=== PATIENT | female | born 1935 | race Caucasian/White ===

== ENCOUNTER → 2020-04-03 06:51 | Outpatient (CLI) | payer MEDICARE, SELFPAY ==
[2020-04-03 20:13] LABS: SARS-CoV-2 RNA PCR Positive
== END ==
PROVIDERS: PCP Emergency Medicine; Visit Provider Emergency Medicine
DX: U07.1 COVID-19 (principal)
CPT/HCPCS: C9803; U0003; U0005

== ENCOUNTER 2020-04-29 14:02 | Outpatient (CLI) | payer MEDICARE, SELFPAY ==
[2020-04-29 15:01] LABS: Alanine Aminotransferase 21 U/L (4-35); Albumin Level 4.4 g/dL (3.5-5.1); Alkaline Phosphatase 51 U/L (38-126); Anion Gap 8 mmol/L (8-16); Aspartate Amino Transferase 29 U/L (14-36); Bilirubin,Total 0.3 mg/dL (0.2-1.3); Blood Urea Nitrogen 18 mg/dL (7-17); Calcium 9.8 mg/dL (8.4-10.2); Carbon Dioxide 30 mmol/L (22-30); Chloride 100 mmol/L (98-107); Cholesterol 176 mg/dL (0-200); Estimated Glomerular Filt Rate 47; Glucose 104 mg/dL (65-105); HDL Direct 51 mg/dL; Potassium 3.8 mmol/L (3.4-5.0); Sodium 138 mmol/L (137-145); Triglycerides 227 mg/dL (<150)
[2020-04-29 15:13] LABS: LDL Cholesterol Direct 84 mg/dL
[2020-05-02 16:06] LABS: Vitamin D 1,25 (OH)2 Total 74 pg/mL (18-72); Vitamin D2 1,25 (OH)2 <8 pg/mL; Vitamin D3 1,25 (OH)2 74 pg/mL
== END 2020-04-29 14:03 | disposition home or self-care (01) ==
LOC: ANHLAB 14:07
PROVIDERS: PCP Emergency Medicine; Visit Provider Emergency Medicine
DX: E78.2 Mixed hyperlipidemia (principal); I10 Essential (primary) hypertension; E03.9 Hypothyroidism, unspecified; E55.9 Vitamin D deficiency, unspecified
CPT/HCPCS: 36415; 80053; 80061; 82652; 84443

== ENCOUNTER 2020-12-26 10:48 | Outpatient (CLI) | payer MEDICARE, SELFPAY ==
[2020-12-26 11:44] LABS: Alanine Aminotransferase 19 U/L (4-35); Albumin Level 4.7 g/dL (3.5-5.1); Alkaline Phosphatase 52 U/L (38-126); Anion Gap 10 mmol/L (8-16); Aspartate Amino Transferase 27 U/L (14-36); Bilirubin,Total 0.6 mg/dL (0.2-1.3); Blood Urea Nitrogen 26 mg/dL (7-17); Calcium 10.1 mg/dL (8.4-10.2); Carbon Dioxide 28 mmol/L (22-30); Chloride 101 mmol/L (98-107); Cholesterol 176 mg/dL (0-200); Estimated Glomerular Filt Rate 47; Glucose 110 mg/dL (65-110); HDL Direct 54 mg/dL; Potassium 4.1 mmol/L (3.4-5.0); Sodium 139 mmol/L (137-145); Triglycerides 142 mg/dL (<150)
[2020-12-26 11:55] LABS: LDL Cholesterol Direct 82 mg/dL
== END 2020-12-26 10:49 | disposition home or self-care (01) ==
LOC: ANHLAB 10:51
PROVIDERS: PCP Emergency Medicine; Visit Provider Emergency Medicine
DX: E03.9 Hypothyroidism, unspecified (principal); E78.2 Mixed hyperlipidemia; I10 Essential (primary) hypertension
CPT/HCPCS: 36415; 80053; 80061; 84443

== ENCOUNTER 2021-01-02 09:13 | Outpatient (CLI) | payer MEDICARE, SELFPAY ==
--- NOTE | ~2021-01-02 | MM_ITS ---
EXAMINATION: MM screening [facility] BI w von HISTORY: Screening mammogram TECHNIQUE: Craniocaudal and mediolateral oblique 3-D tomosynthesis images were obtained and synthetic 2-D images were generated. CAD analysis was submitted and interpreted. COMPARISON: 11/23/2017, 12/03/2015 BREAST PARENCHYMAL COMPOSITION: There are scattered areas of fibroglandular density. FINDINGS: Scattered benign-appearing calcifications are present. There is no evidence of suspicious m ass, calcification, or architectural distortion to suggest malignancy in either breast. There has bee n no suspicious interval change. IMPRESSION: 1. No mammographic evidence of malignancy. 2. Recommend routine screening mammography in one year. BI-RADS Category 2: Benign finding(s). Reviewed, dictated and finalized at location A. OP ANALYST
== END 2021-01-02 09:14 | disposition home or self-care (01) ==
LOC: ANHIMG 09:14
PROVIDERS: PCP Emergency Medicine; Visit Provider Emergency Medicine
DX: Z12.31 Encounter for screening mammogram for malignant neoplasm of breast (principal)
CPT/HCPCS: 77063; 77067

== ENCOUNTER 2021-06-26 08:09 | Outpatient (CLI) | payer MEDICARE, SELFPAY ==
[2021-06-26 09:37] LABS: Alanine Aminotransferase 17 U/L (6-35); Albumin Level 4.6 g/dL (3.5-5.1); Alkaline Phosphatase 50 U/L (38-126); Anion Gap 7 mmol/L (8-16); Aspartate Amino Transferase 25 U/L (14-36); Bilirubin,Total 0.5 mg/dL (0.2-1.3); Blood Urea Nitrogen 23 mg/dL (7-17); Calcium 9.5 mg/dL (8.4-10.2); Carbon Dioxide 29 mmol/L (22-30); Chloride 101 mmol/L (98-107); Cholesterol 156 mg/dL (0-200); Estimated Glomerular Filt Rate 47; Glucose 103 mg/dL (65-110); HDL Direct 50 mg/dL; Potassium 4.1 mmol/L (3.4-5.0); Sodium 137 mmol/L (137-145); Triglycerides 127 mg/dL (<150)
[2021-06-26 09:48] LABS: LDL Cholesterol Direct 64 mg/dL
== END 2021-06-26 08:10 | disposition home or self-care (01) ==
LOC: ANHLAB 08:13
PROVIDERS: PCP Emergency Medicine; Visit Provider Emergency Medicine
DX: E03.9 Hypothyroidism, unspecified (principal); E78.2 Mixed hyperlipidemia
CPT/HCPCS: 36415; 80053; 80061

== ENCOUNTER 2021-09-16 14:33 | Outpatient (CLI) | payer MEDICARE, SELFPAY ==
--- NOTE | ~2021-09-16 | DEXA_ITS ---
Bone Density Report Name: TANA MCDOWELL Age: 86 Sex: Female Ethnicity: White Date of : 1935 Indication: postmenopausal; screening for osteoporosis; height loss; Referring Provider: CONRAD GAMBLE Study: Bone densitometry was performed. Exam Date: September 16, 2021 Accession number: [id number] Bone Density: Region BMD T-score Z-score Classification AP Spine(L1-L4) 1.102 0.5 3.4 Normal Femoral Neck (Left) 0.737 -1.0 1.5 Normal Total Hip (Left) 0.854 -0.7 1.6 Normal Femoral Neck (Right) 0.695 -1.4 1.1 Osteopenia Total Hip (Right) 0.870 -0.6 1.7 Normal Total Hip Mean 0.862 -0.7 1.7 Normal World Health Organization criteria for BMD impression classify patients as: Normal (T-score at or above -1.0), Osteopenia (T-score between -1.0 and -2.5), or Osteoporosis (T-score at or below -2.5). 10-year Fracture Risk(1): Major Osteoporotic Fracture 14% Hip Fracture 3.5% Reported Risk Factors: [place] (), Neck BMD=0.695, BMI=25.4 (1) FRAX(R) Version 3.08. Fracture probability calculated for an untreated patient. Fracture probability may be lower if the patient has received treatment. Clinical Information Provided by Patient: Has used the following medications: Vitamin D, Calcium Patient maximum height was 64 Menopause Age: 53 Onset of menses at age 13 Number of children 0 Impression: The patient has low bone mass, based on the Right Femoral Neck T-score. The patient has an estimated ten-year risk of hip fracture of 3.5% and an estimated ten-year risk of major fracture of 14%, based on the WHO FRAX algorithm. Discussion: BONE DENSITY IS LOW AT ONE OR MORE SKELETAL SITES. THE PATIENT'S BMD AND CLINICAL RISK FACTORS CONTRIBUTE TO THIS PATIENT'S INCREASED RISK OF FRACTURE. This patient's lowest T-score is low at one or more skeletal sites. It meets the World Health Organization's (WHO) criteria for ?low bone mass? (T-score between -1.0 and -2.5). The patient's 10-year risk of hip fracture as calculated by FRAX exceeds the threshold where pharmacological therapy is recommended by the National Osteoporosis Foundation (NOF). However, all treatment decisions require clinical judgment and consideration of individual patient factors, including patient preferences, comorbidities, previous drug use, risk factors not captured in the FRAX model (e.g., frailty, falls, vitamin D deficiency, increased bone turnover, interval significant decline in bone density) and possible under or overestimation of fracture risk by FRAX. The patient should follow a healthful lifestyle (good nutrition with adequate calcium and vitamin D, and appropriate weight-bearing exercise). Follow-Up: Consider a repeat BMD and Vertebral Fracture Assessment (VFA) exam in 2 years or sooner if medically necessar
== END 2021-09-16 14:34 | disposition home or self-care (01) ==
PROVIDERS: PCP Emergency Medicine; Visit Provider Emergency Medicine
DX: Z78.0 Asymptomatic menopausal state (principal); M85.851 Other specified disorders of bone density and structure, right thigh
CPT/HCPCS: 77080

== ENCOUNTER 2021-12-23 09:39 | Outpatient (CLI) | payer MEDICARE, SELFPAY ==
[2021-12-23 10:42] LABS: Alanine Aminotransferase 22 U/L (6-35); Albumin Level 4.8 g/dL (3.5-5.1); Alkaline Phosphatase 51 U/L (38-126); Anion Gap 13 mmol/L (8-16); Aspartate Amino Transferase 24 U/L (14-36); Bilirubin,Total 0.6 mg/dL (0.2-1.3); Blood Urea Nitrogen 19 mg/dL (7-17); Calcium 9.5 mg/dL (8.4-10.2); Carbon Dioxide 27 mmol/L (22-30); Chloride 100 mmol/L (98-107); Cholesterol 176 mg/dL (0-200); Estimated Glomerular Filt Rate 53; Glucose 102 mg/dL (65-110); HDL Direct 50 mg/dL; Sodium 140 mmol/L (137-145); Triglycerides 141 mg/dL (<150)
[2021-12-23 10:52] LABS: LDL Cholesterol Direct 82 mg/dL
== END 2021-12-23 09:40 | disposition home or self-care (01) ==
LOC: ANHLAB 09:49
PROVIDERS: PCP Emergency Medicine; Visit Provider Emergency Medicine
DX: E03.9 Hypothyroidism, unspecified (principal); I10 Essential (primary) hypertension
CPT/HCPCS: 36415; 80053; 80061; 84443

== ENCOUNTER 2022-06-03 10:38 | Outpatient (CLI) | payer MEDICARE, SELFPAY ==
[2022-06-03 11:20] LABS: Alanine Aminotransferase 23 U/L (6-35); Albumin Level 4.8 g/dL (3.5-5.1); Alkaline Phosphatase 53 U/L (38-126); Anion Gap 7 mmol/L (8-16); Aspartate Amino Transferase 26 U/L (14-36); Bilirubin,Total 0.6 mg/dL (0.2-1.3); Blood Urea Nitrogen 21 mg/dL (7-17); Calcium 9.5 mg/dL (8.4-10.2); Carbon Dioxide 29 mmol/L (22-30); Chloride 102 mmol/L (98-107); Cholesterol 176 mg/dL (0-200); Estimated Glomerular Filt Rate 53; Glucose 101 mg/dL (65-110); HDL Direct 55 mg/dL; Potassium 4.4 mmol/L (3.4-5.0); Sodium 138 mmol/L (137-145); Triglycerides 150 mg/dL (<150)
[2022-06-03 11:31] LABS: LDL Cholesterol Direct 81 mg/dL
[2022-06-03 12:28] LABS: Folic Acid > 20.0 ng/mL (2.76->20)
[2022-06-07 23:42] LABS: Vitamin D 1,25 (OH)2 Total 67 pg/mL (18-72); Vitamin D2 1,25 (OH)2 <8 pg/mL; Vitamin D3 1,25 (OH)2 67 pg/mL
== END 2022-06-03 10:39 | disposition home or self-care (01) ==
LOC: ANHLAB 10:40
PROVIDERS: PCP Emergency Medicine; Visit Provider Emergency Medicine
DX: E55.9 Vitamin D deficiency, unspecified (principal); I10 Essential (primary) hypertension
CPT/HCPCS: 36415; 80053; 80061; 82607; 82652; 82746; 84443

== ENCOUNTER 2023-01-08 11:01 | Outpatient (CLI) | payer MEDICARE, SELFPAY ==
[2023-01-08 11:55] LABS: Alanine Aminotransferase 27 U/L (6-35); Albumin Level 4.9 g/dL (3.5-5.1); Alkaline Phosphatase 70 U/L (38-126); Anion Gap 12 mmol/L (8-16); Aspartate Amino Transferase 27 U/L (14-36); Bilirubin,Total 0.6 mg/dL (0.2-1.3); Blood Urea Nitrogen 28 mg/dL (7-17); Carbon Dioxide 27 mmol/L (22-30); Chloride 99 mmol/L (98-107); Cholesterol 189 mg/dL (0-200); Estimated Glomerular Filt Rate 43; Glucose 109 mg/dL (65-110); HDL Direct 53 mg/dL; Potassium 4.1 mmol/L (3.4-5.0); Sodium 138 mmol/L (137-145); Triglycerides 161 mg/dL (<150)
[2023-01-08 12:06] LABS: LDL Cholesterol Direct 84 mg/dL
[2023-01-11 10:35] LABS: Vitamin D 1,25 (OH)2 Total 58 pg/mL (18-72); Vitamin D2 1,25 (OH)2 <8 pg/mL; Vitamin D3 1,25 (OH)2 58 pg/mL
== END 2023-01-08 11:02 | disposition home or self-care (01) ==
PROVIDERS: PCP Emergency Medicine; Visit Provider Emergency Medicine
DX: E55.9 Vitamin D deficiency, unspecified (principal); I10 Essential (primary) hypertension
CPT/HCPCS: 36415; 80053; 80061; 82652; 84443

== ENCOUNTER 2023-02-20 18:37 | Observation (INO) | payer MEDICARE, SELFPAY ==
[2023-02-20] VITALS (10 sets, daily range): BP systolic 133–159; BP diastolic 56–67; PULSE 77–99; RESP 14–25; TEMP 36.4–36.8; O2SAT 94–100; BMI 20.2
--- NOTE | ~2023-02-20 | XR_ITS ---
EXAMINATION: XR foot RT min 3V DATE: 02/20/2023 21:03 INDICATION: Right foot pain and swelling, initial encounter TECHNIQUE: Dorsoplantar, lateral, and oblique views of the right foot were obtained. COMPARISON: None. FINDINGS: There is an acute, traumatic, closed, oblique fracture involving the mid and distal neck of the fifth metatarsal. No additional acute fracture is identified. 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 Hallux valgus is noted. There are posterior and plantar calcaneal enthesophytes. IMPRESSION: 1. Acute oblique fracture of the fifth metatarsal neck. Reviewed, dictated and finalized at location F. RVISOR FRAMING MILL
--- NOTE | ~2023-02-20 | US_ITS ---
EXAMINATION: US renal BI DATE: 02/21/2023 10:22 INDICATION: Chronic kidney disease. TECHNIQUE: Multiple ultrasound grayscale images of the kidneys were obtained. COMPARISON: Abdomen MRI 10/01/2013 FINDINGS: The right kidney measures 9.2 x 4.7 x 4.9 cm. The left kidney measures 9.1 x 4.9 x 4.4 cm. The kidney s demonstrate normal parenchymal echogenicity. There is no hydronephrosis. The bladder is normal. IMPRESSION: 1. Normal kidneys. No hydronephrosis. Reviewed, dictated and finalized at location A. S OPERATOR APPRENTICE
--- NOTE | ~2023-02-20 | MR_ITS ---
EXAMINATION: MR brain/brain stem wo con DATE: 02/21/2023 08:10 INDICATION: Stroke. Head injury. TECHNIQUE: Magnetic resonance imaging (MRI) of the brain and brainstem was performed without intraven ous contrast. COMPARISON: Head CT 02/20/2023 FINDINGS: There are scattered areas of low attenuation in the cerebral white matter and jerrica, which i s within normal limits for the patient's age. There is an old infarct in left parietal lobe. There i s an old infarct in right cerebellum. There is no intracranial hemorrhage, acute infarction, or abnor mal intracranial mass lesion. The ventricles are normal in size. The paranasal sinuses are clear. The orbits are normal. The mastoid air cells are normal. IMPRESSION: 1. Old infarcts in the left parietal lobe and right cerebellum. Reviewed, dictated and finalized at location A. NICAL BUYER
--- NOTE | ~2023-02-20 | CT_ITS ---
EXAMINATION: CTA brain carotid DATE: 02/20/2023 20:48 INDICATION: Head injury TECHNIQUE: Computed tomographic angiography (CTA) of the head was performed without and with 100 mL O mnipaque-350 intravenous contrast. CTA of the neck was performed with intravenous contrast. The dose- length product was 976.58 mGy-cm. Maximum intensity projection and volume rendered 3D-reconstructions were created by the technologist on a separate workstation. Automated exposure control and iterative reconstruction technique were employed. COMPARISON: None. FINDINGS: HEAD CTA: There is no acute intraparenchymal hemorrhage. No evidence of mass lesion. No evidence of a cute infarction. There is a small area of prior infarction in the left frontoparietal region. There a re small lacunar infarcts of the right basal ganglia. There is mild periventricular and subcortical h ypodensity probably related to small vessel ischemic disease. There is mild prominence of the sulci a nd ventricles related to cerebral atrophy. Intracranial calcified cerebral atherosclerosis is noted. There are no extra-axial collections. There is no mass effect or midline shift. The orbits are unrema rkable. There is right parietal scalp soft tissue swelling.. The visualized sinuses and mastoid air c ells are well aerated. There is no significant stenosis of the basilar artery or posterior cerebral arteries. There is no si gnificant stenosis of the intracranial internal carotid arteries or the anterior or middle cerebral a rteries. The anterior communicating artery and posterior communicating arteries are normal. There is no aneurysm. NECK CTA: The thyroid gland is unremarkable. The submandibular and parotid glands are symmetric. Ther e is no lymphadenopathy. There are no masses identified. The airway is unremarkable. The superior med iastinum is unremarkable. There is moderate cervical spondylosis. There is 0% stenosis of the proximal right internal carotid artery relative to normal distal artery l umen diameter (NASCET criteria). There is 0% stenosis of the proximal left internal carotid artery re lative to normal distal artery lumen diameter. IMPRESSION: 1. Areas of prior infarction without acute intracranial abnormality. Normal head CTA. 2. 0% stenosis of the proximal right internal carotid artery relative to normal distal artery lumen d iameter (NASCET criteria). 3. 0% stenosis of the proximal left internal carotid artery relative to normal distal artery lumen di ameter. Reviewed, dictated and finalized at location F. STAPLER IMPRESSION: 1. Areas of prior infarction without acute intracranial abnormality. Normal hea d CTA. 2. 0% stenosis of the proximal right internal carotid artery relative to normal distal artery lumen diameter (NASCET criteria). 3. 0% stenosis of the proximal left internal carotid artery relative to normal distal artery lumen diameter.
--- NOTE | ~2023-02-20 | XR_ITS ---
EXAMINATION: XR chest 1V portable INDICATION: Weakness TECHNIQUE: Portable AP chest at 2058 hours COMPARISON: 08/08/2017 FINDINGS: There is chronic atelectasis or scarring of the left lung base. The lungs are free of acute opacities. No pleural effusion or pneumothorax. The cardiac mediastinal silhouette is normal. IMPRESSION: 1. No acute cardiopulmonary abnormality. Reviewed, dictated and finalized at location F. N FREIGHT AGENT
--- NOTE | ~2023-02-20 | CT_ITS ---
EXAMINATION: CT cervical spine wo con DATE: 02/20/2023 20:48 INDICATION: Head injury TECHNIQUE: Computed tomography (CT) of the cervical spine was performed without intravenous contrast. The dose-length product (DLP) was 186.61 mGy-cm. Automated exposure control and iterative reconstruc tion technique were employed. COMPARISON: None FINDINGS: There are 2 mm of anterolisthesis of C4 on C5 and C7 on T1. The vertebral body heights are maintained. There is moderate loss of intervertebral disc space height at C5-6, C6-7, and C7-T1. The odontoid process is intact. There is multilevel severe facet and uncovertebral joint osteoarthritis. IMPRESSION: 1. Moderate cervical spondylosis without acute findings. Reviewed, dictated and finalized at location F. LEATER
--- NOTE | ~2023-02-20 | CT_ITS ---
EXAMINATION: CT brain wo con INDICATION: Head injury COMPARISON: None TECHNIQUE: Standard unenhanced head CT. The dose-length product (DLP) was 605.33 mGy-cm. The mA was a djusted according to patient size. Iterative reconstruction technique was employed. FINDINGS: No acute intraparenchymal hemorrhage. No evidence of mass lesion. No evidence of acute infa rction. There is a small area of prior infarction in the left frontoparietal region. There are small lacunar infarcts of the right basal ganglia. There is mild periventricular and subcortical hypodensit y probably related to small vessel ischemic disease. There is mild prominence of the sulci and ventri cles related to cerebral atrophy. Intracranial calcified cerebral atherosclerosis is noted. No extra- axial collections. No mass effect or midline shift. The orbits are unremarkable. There is right parie wm scalp soft tissue swelling. The visualized sinuses and mastoid air cells are well aerated. IMPRESSION: 1. Areas of prior infarction without acute intracranial abnormality. 2. Age related findings. Reviewed, dictated and finalized at location F. RIAL ASSEMBLER
--- NOTE | 2023-02-20 19:41 | ECG_ITS ---
Measurements Intervals [place] Rate: 90 P: 46 UT: 162 QRS: -62 QRSD: 152 T: 8 QT: 396 QTc: 485 Interpretive Statements SINUS RHYTHM RIGHT BUNDLE BRANCH BLOCK LEFT ANTERIOR FASCICULAR BLOCK BASELINE WANDER- II, III ABNORMAL ECG NO PREVIOUS ECG AVAILABLE FOR COMPARISON Electronically Signed On 02-21-2023 6:48:59 LUMBER YARD WORKER by Vishnu Gonzalez D.O.
[2023-02-20] MEDS: ASPIRIN 81 MG CHEWABLE TABLET 324 MG PO (20:02)
[2023-02-20 20:07] LABS: Basophils Absolute Auto 0.1 K/mm3 (0.0-0.1); Basophils Percent Auto 1.1 % (0.2-1.2); Eosinophils Absolute Auto 0.4 K/mm3 (0-0.3); Eosinophils Percent Auto 3.8 % (0-4.4); Hematocrit 35.9 % (37.0-47.0); Hemoglobin 11.4 g/dL (12.0-15.0); Immature Granulocyte Absolute 0.05 K/mm3 (0.00-0.031); Immature Granulocyte Percent A 0.5 % (0-0.5); Lymphocytes Percent Auto 14.2 % (18.3-44.2); Mean Corpuscular HGB Conc 31.8 g/dl (32-36); Mean Corpuscular Hemoglobin 29.3 pg (26-34); Mean Corpuscular Volume 92.3 fl (80-100); Monocytes Percent Auto 10.3 % (2.6-8.5); Neutrophils Absolute Auto 6.9 K/mm3 (1.3-6.7); Neutrophils Percent Auto 70.1 % (45.5-73.1); Platelet Count Result 472 k/mm3 (150-375); Red Blood Count 3.89 M/mm3 (4.2-5.4); Red Cell Distribution Width 13.4 % (11.5-14.5); White Blood Count 9.9 K/mm3 (4.5-10.0)
--- NOTE | 2023-02-20 20:12 | ED.GENADULT ---
HPI - General Adult General Chief complaint: Fall Stated complaint: fall today-hit head-no thinners Time Seen by Provider: 02/20/23 19:20 History of Present Illness HPI narrative: And is a 57-year-old female who presents emergency department with chief complaint of fall. Patient reports that she tripped and fell and struck her head on a hardwood floor patient denies being on blood thinners denies loss of consciousness. The patient states that around 2:00 p.m. today she noticed that her right leg was heavier than normal and was clumsy the patient states she also had some numbness and tingling around the area of the 5th metatarsal Related Data Home Medications Medication Instructions Recorded Confirmed loratadine 10 mg tablet (Claritin) 10 mg PO DAILY 12/26/20 01/13/23 Glucosamin/Chondroitin/MSM See Rx Instructions .Route .COMPLEX 07/01/21 01/13/23 Good Health Multivitamin See Rx Instructions .Route .COMPLEX 07/01/21 01/13/23 OMEGA 3 See Rx Instructions .Route .COMPLEX 07/01/21 01/13/23 cholecalciferol (vitamin D3) 25 25 mcg PO DAILY 06/09/22 01/13/23 mcg (1,000 unit) capsule coenzyme Q10 30 mg capsule 30 mg PO DAILY 01/12/23 01/13/23 magnesium oxide 400 mg PO DAILY 01/12/23 01/13/23 Allergies Allergy/AdvReac Type Severity Reaction Status Date / Time No Known Allergies Allergy Unknown Verified 02/20/23 18:37 Review of Systems Review of Systems: A 10 system review of systems was completed on the patient and is negative except for what is stated in the HPI. Nursing and ancillary documentation was reviewed. [facility] Past Medical History Medical History Essential (primary) hypertension Family History Family History Sibling Hypertension Family history of arthritis Father Family history of lung cancer Acute myocardial infarction Family history of malignant neoplasm, Onset Age: 91 Mother Family history of congestive heart failure Acute myocardial infarction Family history of cardiovascular disease, Onset Age: 92 Other Family history of allergic disorder Social History Social History Smoking status: Never smoker Second hand tobacco smoke exposure: No Alcohol intake: never Substance use: never Current Housing: Decline to Answer Concerned About Future Housing: Decline to Answer Difficulty Paying Gas/Electric Bills: Decline to Answer Difficulty Paying for Meds: Decline to Answer Currently Unemployed: Decline to Answer Education: Decline to Answer Difficulty w/ Childcare or Family Care: Decline to Answer Exam Narrative: GENERAL: Well-appearing, well-nourished, and in no acute distress. HEAD: Normocephalic, atraumatic. EYES: PERRLA and EOMI. ENT: Nares clear, no rhinorrhea or epistaxis. Mucous membranes moist. NECK: Supple. CHEST: Clear to auscultation. No respiratory distress. HEART: Regular rate and rhythm. No murmur heard. Normal peripheral pulses. ABDOMEN: Soft, nontender, nondistended, normal active bowel sounds. EXTREMITIES: Normal range of motion. No edema. SKIN: Warm, dry, no rash. NEURO: No focal deficits. Alert and oriented x3. PSYCH: Normal mood and affect. Course Vital Signs Vital signs: Vital Signs Temperature 36.8 C 02/20/23 18:41 Pulse Rate 99 02/20/23 18:41 Respiratory Rate 18 02/20/23 18:41 Blood Pressure 159/61 H 02/20/23 18:41 Pulse Oximetry 98 02/20/23 18:41 Oxygen Delivery Room Air 02/20/23 18:41 Temperature 36.8 C 02/20/23 18:41 Pulse Rate 92 02/20/23 19:57 Respiratory Rate 20 02/20/23 19:57 Blood Pressure 135/60 02/20/23 19:57 Pulse Oximetry 100 02/20/23 19:57 Oxygen Delivery Room Air 02/20/23 18:41 Medical Decision Making MDM Narrative Medical decision making narrative: Shakila
[2023-02-20 20:23] LABS: Alanine Aminotransferase 24 U/L (6-35); Alkaline Phosphatase 61 U/L (38-126); Anion Gap 11 mmol/L (8-16); Aspartate Amino Transferase 33 U/L (14-36); Bilirubin,Total 0.4 mg/dL (0.2-1.3); Blood Urea Nitrogen 32 mg/dL (7-17); Calcium 10.1 mg/dL (8.4-10.2); Carbon Dioxide 29 mmol/L (22-30); Chloride 97 mmol/L (98-107); Estimated CRCL calculation 20 ml/min; Estimated Glomerular Filt Rate 33; Glucose 122 mg/dL (65-110); Magnesium 2.3 mg/dL (1.6-2.3); Potassium 3.5 mmol/L (3.4-5.0); Sodium 137 mmol/L (137-145)
--- NOTE | 2023-02-20 20:33 | PC.NURSE ---
Patient taken to CT via stretcher at this time.
[2023-02-20 20:35] LABS: Troponin I < 0.012 ng/mL (0.000-0.034)
[2023-02-20 20:36] LABS: INR 0.9; Partial Thromboplastin Time 26.6 SECONDS (22.3-36.8); Prothrombin Time 12.8 Seconds (11.1-14.7)
[2023-02-20 23:10] LABS: Appearance Urine Clear (Clear); Bacteria Urine None Seen /hpf; Bilirubin Urine Negative (Negative); Color Urine Yellow (Yellow); Glucose Urine UA Negative (Negative); Ketones Urine Negative (Negative); Leukocyte Esterase Ur Negative LEU/UL (Negative); Nitrate Urine Negative (Negative); Non Pathogenic Casts 0-2; Protein Urine Negative (Negative); RBC Urine 0-2 /hpf (0-2); Squamous Epithelial Cell Urine None seen /hpf (Few); Urobilinogen Urine 0.2 mg/dL (<2.0); WBC Urine 0-5 /hpf
[2023-02-20 23:13] LABS: Add Urine Microscopic? YES; Specific Grav Ur 1.049 (1.001-1.035)
[2023-02-21] VITALS (14 sets, daily range): BP systolic 107–129; BP diastolic 49–60; PULSE 64–85; RESP 20; TEMP 35.9–36.3; O2SAT 93–100
--- NOTE | 2023-02-21 | ECHO_ITS ---
Patient Info Name: Nithya Ramos Age: 87 years : 1935 Gender: Female Ht: 64 in Wt: 118 lbs BSA: 1.55 m2 HR: 81 bpm BP: 107 / 56 mmHg Heart Rhythm: Sinus Rhythm Technical Quality: Fair Exam Date: 02/21/2023 1:04 PM Exam Location: Echo Lab Patient Status: Outpatient Admit Date: 02/20/2023 Staff Ordering Physician: Kash Abad MD Nitrocellulose Maker: Diana Beverly RDCS Attending Provider: Radha Sanchez DO Exam Type: CA echo dop bubble study w con Study Info Indications - WEAKNESS Complete two-dimentional, color flow and Doppler transthoracic echocardiogram is performed with agitated saline and with contrast to opacify the left ventricle and to improve the delineation of the left ventricle endocardial borders. Contrast/Agitated Saline Contrast/Ag. Saline: Agitated Saline Amount: 20.00 ml Administered By: Christal Moore RDCS Existing IV Access: Yes IV Access Condition: patent with no signs of infiltration Contrast/Ag. Saline: Definity Amount: 2.00 ml Administered By: Diana Beverly RDCS Existing IV Access: Yes IV Access Condition: patent with no signs of infiltration Summary 1. Technically difficult study with limited views. Definity contrast administered. 2. Left ventricular chamber dimension is normal. 3. Left ventricular systolic function is hyperdynamic, estimated at >70%. 4. There is mildly increased left ventricular wall thickness. 5. The left ventricular diastolic function is grade I diastolic dysfunction. 6. No evidence for [id number] shunt with and without Valsalva with injection of agitated saline. Clinical correlation advised. Left Ventricle Left ventricular chamber dimension is normal. Left ventricular systolic function is hyperdynamic, estimated at >70%. There is mildly increased left ventricular wall thickness. The left ventricular diastolic function is grade I diastolic dysfunction. Technically difficult study with limited views. Definity contrast administered. Right Ventricle Right ventricular chamber dimension is normal. Right ventricular systolic function is normal. Prominent moderator band. Left Atria Left atrial chamber dimension is normal. Right Atria Right atrial chamber dimension is normal. Atrial Septum No evidence for jyxqb-[id number]-kjqa shunt with and without Valsalva with injection of agitated saline. Clinical correlation advised. Aortic Valve The aortic valve is probable trileaflet. There is mild aortic valve sclerosis. There is no aortic valve stenosis. There is no aortic valve regurgitation. Pulmonic Valve The pulmonic valve is not well visualized. Mitral Valve The mitral valve has thickened leaflets. There is trace mitral valve regurgitation. The mitral valve annulus is mildly calcified. Tricuspid Valve The tricuspid valve leaflets are normal. There is trace tricuspid valve regurgitation. No pulmonary hypertension, estimated pulmonary arterial systolic pressure is 23 mmHg. Pericardium/Pleural The pericardium appears normal. There is small pericardial effusion. Inferior Vena Cava Normal inferior vena cava with >50% collapse upon inspiration consistent with normal right atrial pressure, 5 mmHg. Aorta The aortic root size at the sinus of Valsalva is normal. The prox ascending aorta size is normal. There is mild aortic atherosclerosis. Left Ventricular Outflow Tract Name Value
[2023-02-21 02:01] LABS: Troponin I < 0.012 ng/mL (0.000-0.034)
--- NOTE | 2023-02-21 08:58 | PM.IMHP ---
H&P: HPI History of Present Illness Date/Time: 02/21/23 08:58 Chief Complaint: Fall Narrative: 87yo female with hypothyroidism, hyperlipidemia and hypertension here for fall. In the afternoon on the day of admission the patient experienced right foot symptoms that felt 'like a weight'. Symptoms were brief and resolved quickly without intervention. There was no trauma to the right foot. No ankle injury or foot injury. Patient denies any numbness, tingling or weakness in the extremities after this event. After dinner, patient stood to walk. She took about 10 steps when she felt unbalanced falling backwards hitting the back her head. She denies any lightheadedness, chest pain, dizziness or shortness of breath prior to the fall. She had no loss consciousness. She was oriented after the fall. Speech was clear. There has been no fever, chills, vision changes, hearing changes, odynophagia, dysphagia, chest pain, shortness some breath, nausea, vomiting abdominal pain, back pain, dysuria or hematuria. She has lost 15 lb since August unintentionally but has gained about 5 lb back. She has recently moved to [facility]. EMS was called. Unclear what her blood pressure or glucose were at the time. EMS recommended patient be evaluated in the emergency room. Patient was taken by private car to the ED. in the ED, she was hemodynamically stable. White count was normal. Hemoglobin slightly low at 11.4. Platelet count was mildly elevated 472K. BUN was 32 and creatinine was 1.5. Glucose 122. LFTs normal. Urinalysis was clear. Cervical spine CT showed moderate cervical spondylosis without acute findings. There was concern the patient may have had TIA so CTA was ordered. CTA of the head and neck again shows areas of prior infarct without acute intracranial abnormalities. She had 0% stenosis in the bilateral proximal internal carotid arteries. Chest x-ray was clear. Foot x-ray shows acute oblique fracture of the 5th metatarsal neck. She was placed in a soft cast. She was given aspirin. She was admitted for further care. Review of Systems Review of Systems: All systems reviewed & are unremarkable except as noted in HPI and below [facility] Past Medical History Medical History (Updated 02/21/23 @ 09:33 by Kash Abad MD) CVA (cerebral vascular accident) noted by CT scan Feb 2023 Essential (primary) hypertension Hypothyroidism, unspecified Other hyperlipidemia Vitamin D deficiency Surgical History Surgical History Hx of cholecystectomy complicated by needing endoscopy with bile stent placed Family History Family History Sibling Hypertension Family history of arthritis Father Family history of lung cancer Acute myocardial infarction Family history of malignant neoplasm, Onset Age: 91 Mother Family history of congestive heart failure Acute myocardial infarction Family history of cardiovascular disease, Onset Age: 92 Other Family history of allergic disorder Social History Social History (Updated 02/21/23 @ 09:14 by Kash Abad MD) Social History: Lifelong nonsmoker. No alcohol or drug use. Full code. She nominates [place], her daughter, to be the individual who would make medical decisions for her if she is unable. She lives in independent living at [place]. Smoking status: Never smoker Second hand tobacco smoke exposure: No Alcohol intake: never Substance use: never Do You Feel Safe in your Home?: Yes Lack of Transportation: No Lack of Food: Never True Current Housing: I Have Housing Concerned About Future Housing: No Difficulty Paying Gas/Electric Bills: No Difficulty Paying for Meds: No Currently Unemployed: No Education: High School Diploma/GED Difficulty w/ Childcare or Family Care: No Spiritual c
--- NOTE | 2023-02-21 09:26 | PM.CNOR ---
History of Present Illness HPI Consult date: 02/21/23 Chief complaint: Fall, Possible TIA, Fracture of 5th Metatarsal PMFSH Past Medical History Medical History Essential (primary) hypertension Hypothyroidism, unspecified Other hyperlipidemia Vitamin D deficiency Surgical History Surgical History Hx of cholecystectomy complicated by needing endoscopy with bile stent placed Family History Family History Sibling Hypertension Family history of arthritis Father Family history of lung cancer Acute myocardial infarction Family history of malignant neoplasm, Onset Age: 91 Mother Family history of congestive heart failure Acute myocardial infarction Family history of cardiovascular disease, Onset Age: 92 Other Family history of allergic disorder Social History Social History (Updated 02/21/23 @ 09:14 by Kash Abad MD) Social History: Lifelong nonsmoker. No alcohol or drug use. Full code. She nominates [place], her daughter, to be the individual who would make medical decisions for her if she is unable. She lives in independent living at [facility]. Smoking status: Never smoker Second hand tobacco smoke exposure: No Alcohol intake: never Substance use: never Do You Feel Safe in your Home?: Yes Lack of Transportation: No Lack of Food: Never True Current Housing: I Have Housing Concerned About Future Housing: No Difficulty Paying Gas/Electric Bills: No Difficulty Paying for Meds: No Currently Unemployed: No Education: High School Diploma/GED Difficulty w/ Childcare or Family Care: No Spiritual care concerns: No Meds Home Medications and Allergies Home Medications Medication Instructions Recorded Confirmed Type loratadine 10 mg tablet (Claritin) 10 mg PO DAILY 12/26/20 02/20/23 History meclizine 25 mg tablet 25 mg PO TID PRN dizziness #30 tabs 06/03/21 02/20/23 Rx Glucosamin/Chondroitin/MSM See Rx Instructions .Route .COMPLEX 07/01/21 02/20/23 History Good Health Multivitamin See Rx Instructions .Route .COMPLEX 07/01/21 02/20/23 History OMEGA 3 1,380 mg PO DAILY 07/01/21 02/20/23 History cholecalciferol (vitamin D3) 25 25 mcg PO DAILY 06/09/22 02/20/23 History mcg (1,000 unit) capsule cyclobenzaprine 5 mg tablet 5 mg PO BID muscle spasm #14 tabs 11/01/22 02/20/23 Rx coenzyme Q10 30 mg capsule 30 mg PO DAILY 01/12/23 02/20/23 History magnesium oxide 200 mg PO DAILY 01/12/23 02/20/23 History amlodipine 5 mg tablet 5 mg PO BID 02/20/23 02/20/23 History atorvastatin 10 mg tablet 10 mg PO HS 02/20/23 02/20/23 History fenofibrate nanocrystallized 48 mg 48 mg PO DAILY 02/20/23 02/20/23 History tablet fluticasone propionate 50 2 spray intranasal QAM PRN 02/20/23 02/20/23 History mcg/actuation nasal Allergies spray,suspension levothyroxine 75 mcg tablet 75 mcg PO DAILY 02/20/23 02/20/23 History valsartan 160 See Rx Instructions .Route .COMPLEX 02/20/23 02/20/23 History mg-hydrochlorothiazide 12.5 mg tablet Allergies Allergy/AdvReac Type Severity Reaction Status Date / Time No Known Allergies Allergy Unknown Verified 02/20/23 18:37 Vital Signs Vital Signs - 24 hr 02/20/23 18:41 02/20/23 19:57 02/20/23 19:56 Temperature 36.8 C Pulse Rate 99 92 87 Respiratory Rate 18 20 22 H Blood Pressure 159/61 H 135/60 Pulse Oximetry 98 100 Oxygen Delivery Room Air 02/20/23 19:57 02/20/23 20:04 02/20/23 22:02 Temperature Pulse Rate 90 91 81 Respiratory Rate 18 17 14 Blood Pressure 135/60 Pulse Oximetry 95 Oxygen Delivery 02/20/23 22:18 02/20/23 22:34 02/20/23 23:09 Temperature Pulse Rate 81 87 81 Respiratory Rate 24 H 19 17 Blood Pressure 135/56 L Pulse Oximetry 94 98 95 Oxygen Delivery 02/20/23 22:43 02/20/23
[2023-02-21] MEDS: LEVOTHYROXINE SODIUM 75 MCG TABLET PO (10:44)
[2023-02-21] MEDS: amLODIPine BESYLATE 5 MG TABLET PO ×2 (10:44→17:01)
[2023-02-21] MEDS: FENOFIBRATE,MICRONIZED 48 MG TABLET PO (10:45)
[2023-02-21] MEDS: MAGNESIUM OXIDE 200 MG TABLET PO (10:46)
[2023-02-21] MEDS: ASPIRIN 81 MG CHEWABLE TABLET PO (10:46)
[2023-02-21] MEDS: CHOLECALCIFEROL 1,000 UNITS TABLET 1000 UNITS PO (10:46)
[2023-02-21 11:15] LABS: Anion Gap 10 mmol/L (8-16); Blood Urea Nitrogen 23 mg/dL (7-17); Calcium 10.1 mg/dL (8.4-10.2); Carbon Dioxide 27 mmol/L (22-30); Chloride 101 mmol/L (98-107); Cholesterol 186 mg/dL (0-200); Estimated CRCL calculation 28 ml/min; Estimated Glomerular Filt Rate 47; Glucose 118 mg/dL (65-110); HDL Direct 61 mg/dL; Potassium 4.6 mmol/L (3.4-5.0); Sodium 138 mmol/L (137-145); Triglycerides 143 mg/dL (<150)
[2023-02-21 11:26] LABS: LDL Cholesterol Direct 83 mg/dL
[2023-02-21 11:41] LABS: Hemoglobin A1C 5.6 % (<5.7)
[2023-02-21 12:16] LABS: Folic Acid > 20.0 ng/mL (2.76->20)
--- NOTE | 2023-02-21 12:27 | PM.CNOR ---
Assessment and Plan Assessment and plan (1) Fracture of fifth metatarsal bone of right foot: Qualifiers: Encounter type: initial encounter Fracture alignment: displaced Fracture type: closed Qualified Code(s): S92.351A - Displaced fracture of fifth metatarsal bone, right foot, initial encounter for closed fracture <BrigetteMALA Nguyen - Last Filed: 02/21/23 12:37> Code(s): S92.351A - Displaced fracture of fifth metatarsal bone, right foot, initial encounter for closed fracture <MALA Ross - Last Filed: 02/21/23 12:37> Status: Acute <MALA oRss - Last Filed: 02/21/23 12:37> Assessment and Plan: Radiographs of the right foot reveal an acute oblique fracture of the fifth metatarsal neck. The fracture type and injury as well as radiographs discussed with the patient and family. Operative and nonoperative treatment options reviewed. Recommended non operative treatment. Risk of nonunion, malunion or late displacement discussed. Stiffness, pain and possible dysfunction of the joint discussed. Fracture precautions and activity restrictions reviewed. The patient verbalizes understanding. patient is hesitant to be fit with a fracture boot due to a history of a bad back. Recommend postop shoe at this time. Nonweightbearing right lower extremity or protected weight-bearing with postop shoe on heel. Walker for balance. PT and OT for gait training. Okay to keep splint on until prior to discharge. Then remove splint and place postop shoe. Ice, elevation, pain control. Patient follow-up in 3 weeks for re-evaluation in the outpatient orthopedic clinic. We will arrange appointment. Thank you for allowing us to assist in the care of this patient. <MALA Ross - Last Filed: 02/21/23 12:37> (2) Fall from ground level: Code(s): W18.30XA - Fall on same level, unspecified, initial encounter <MALA Ross - Last Filed: 02/21/23 12:37> Status: Acute <MALA Ross - Last Filed: 02/21/23 12:37> Assessment and Plan: Orthopedic consultation right foot fracture. Consultation note, Patient, medical record, radiographs reviewed. Right foot 5th metatarsal fracture. Recommend conservative treatment and follow up in orthopedic office. <Bong Mcdonough MD - Last Filed: 02/21/23 13:27> Assessment and Plan: Reviewed history, exam, radiographs and current labs with attending MD and covering surgeon, Dr. Mcdonough, who agrees with current plan as indicated above. No further recommendations from Dr. Mcdonough at this time. <MALA Ross - Last Filed: 02/21/23 12:37> History of Present Illness HPI Consult date: 02/21/23 <MALA Ross - Last Filed: 02/21/23 12:37> 02/21/23 <Bong Mcdonough MD - Last Filed: 02/21/23 13:27> Chief complaint: Fall, Possible TIA, Fracture of 5th Metatarsal <MALA Ross - Last Filed: 02/21/23 12:37> Narrative: 87-year-old female admitted for a fall with a possible TIA. Patient currently resides at [facility] in the independent living side. She reports having a fall of unknown origin. She does not recall tripping on anything but was in a congested area prior to the fall. She also endorses weakness of the right lower extremity earlier in the day. Radiographs obtained reveal a fracture of the 5th metatarsal of the right foot. Patient is put in splint and was admitted to the floor for further evaluation of suspected TIA. <MALA Ross - Last Filed: 02/21/23 12:37> Review of Systems Review of Systems: All systems reviewed & are unremarkable except as noted in HPI and below <MALA Ross - Last Filed: 02/21/23 12:37> [facility] Past Medical History Medical History: Medical History CVA (cerebral vascular accident) noted by CT scan Feb 2023 Essential (primary) hypertension Hypothyroidism, unsp
[2023-02-21] MEDS: PERFLUTREN LIPID MICROSPHERES 1.5 ML VIAL DILUTED TO 10 ML TOTAL VOLUME IV PUSH (13:45)
--- NOTE | 2023-02-21 14:13 | IVDEFINITY ---
Prior to administration of IV Definity the patient was educated on the risks and benefits of the imaging enhancing agent including potential adverse side effects. The patient verbalized understanding. Allergies were verified. No exclusion criteria were identified and at least one of the following inclusion criteria were met: 1) physician request, 2) patient technically difficult to image (per the [place] [employer] guidelines of two or more segments not discernable within the apical view), or 3) questionable left ventricular function. ?
[2023-02-21] MEDS: ATORVASTATIN 10 MG TABLET PO (20:27)
[2023-02-22] VITALS (7 sets, daily range): BP systolic 115–140; BP diastolic 60–66; PULSE 62–86; RESP 18; TEMP 36.3–37.1; O2SAT 91–94
[2023-02-22] MEDS: LEVOTHYROXINE SODIUM 75 MCG TABLET PO (05:36)
[2023-02-22] MEDS: ASPIRIN 81 MG CHEWABLE TABLET PO (08:48)
[2023-02-22] MEDS: CYANOCOBALAMIN 1,000 MCG TABLET 1000 MCG PO (08:49)
[2023-02-22] MEDS: CHOLECALCIFEROL 1,000 UNITS TABLET 1000 UNITS PO (08:49)
[2023-02-22] MEDS: amLODIPine BESYLATE 5 MG TABLET PO (08:49)
[2023-02-22] MEDS: FENOFIBRATE,MICRONIZED 48 MG TABLET PO (08:49)
[2023-02-22] MEDS: MAGNESIUM OXIDE 200 MG TABLET PO (08:49)
--- NOTE | 2023-02-22 09:23 | PM.PNORT ---
Progress Note: A&P Assessment and Plan (1) Fracture of fifth metatarsal bone of right foot: Qualifiers: Encounter type: initial encounter Fracture alignment: displaced Fracture type: closed Qualified Code(s): S92.351A - Displaced fracture of fifth metatarsal bone, right foot, initial encounter for closed fracture Code(s): S92.351A - Displaced fracture of fifth metatarsal bone, right foot, initial encounter for closed fracture Status: Acute Assessment and Plan: Radiographs of the right foot reveal an acute oblique fracture of the fifth metatarsal neck. The fracture type and injury as well as radiographs discussed with the patient and family. Operative and nonoperative treatment options reviewed. Recommended non operative treatment. Risk of nonunion, malunion or late displacement discussed. Stiffness, pain and possible dysfunction of the joint discussed. Fracture precautions and activity restrictions reviewed. The patient verbalizes understanding. Patient previously hesitant to be fit with a fracture boot due to a history of a bad back but now considering. POST OP shoe at bedside. Nonweightbearing right lower extremity or protected weight-bearing with postop shoe on heel. Walker for balance. PT and OT for gait training. Okay to keep splint on until prior to discharge. Then remove splint and place postop shoe or fracture boot, patient or family preference. Ice, elevation, pain control. Patient follow-up in 3 weeks for re-evaluation in the outpatient orthopedic clinic. Appt scheduled. (2) Fall from ground level: Code(s): W18.30XA - Fall on same level, unspecified, initial encounter Status: Acute Assessment and Plan: Orthopedic consultation right foot fracture. Consultation note, Patient, medical record, radiographs reviewed. Right foot 5th metatarsal fracture. Recommend conservative treatment and follow up in orthopedic office. Plan Reviewed history, exam, radiographs and current labs with attending MD and covering surgeon, Dr. cMdonough, who agrees with current plan as indicated above. No further recommendations from Dr. Mcdonough at this time. Subjective Subjective Date/Time Seen: 02/22/23 09:23 Interval history: 1 day s/p right foot fracture. Pain well controlled. Splint in place. Fit with post op shoe. Concerned about ambulation and fracture boot vs. post op shoe. Review of Systems Review of Systems: All systems reviewed & are unremarkable except as noted in HPI and below Exam Const: General: cooperative and average body habitus Nutritional Appearance: average body habitus Orientation/consciousness: patient oriented x3 Limitations: no limitations HENMT: Head: normal to inspection Ears: hearing grossly normal bilaterally Face/Nose/Sinus: Normal external nose present and normal facial exam Face and sinus: normal facial exam Mouth: Yes moist mucous membranes Teeth and gingiva: dentition normal Eyes: General: appearance normal, both eyes and all related structures Pupils: Equal, round and reactive pupils present EOM: EOMs intact bilaterally Neck: Neck: normal visual inspection Chest: Chest palpation & inspection: normal inspection of the chest Resp: Effort & Inspection: normal respiratory effort and able to speak in complete sentences Cardio: Jugular venous distension: no JVD Neuro: General: patient oriented x3 Cranial nerves: Yes Equal, round and reactive pupils present Extrem: Right lower extremity: foot ( Splint in place, wiggles toes, sensation intact ) Details: tenderness Location: of the dorsal foot Location: laterally and of another digit Location: the 5th digit, abnormal ROM of toe, edema, ecchymosis, vascular exam Details: dorsalis pedis pulse present and motor-sensory exam Details: light-touch normal Objective Data Vital Signs Vital Signs: Vital Signs - 24 hr 02/21/23 10:42 02/21/23 10:40 02/21/23 12:00 Temperature Pulse Rate 77 8
--- NOTE | 2023-02-22 14:00 | PCPTNOTE ---
Attempted PT evaluation, walking boot not present. Will follow.
--- NOTE | 2023-02-22 16:30 | PM.DS ---
DS: Admitting Diagnosis Discharge Date 02/22/23 Admitting Diagnosis Right foot pain, fall. DS: Discharge Diagnosis Discharge Diagnosis (1) Fall from ground level: Code(s): W18.30XA - Fall on same level, unspecified, initial encounter Status: Acute (2) Fracture of fifth metatarsal bone of right foot: Qualifiers: Encounter type: initial encounter Fracture alignment: displaced Fracture type: closed Qualified Code(s): S92.351A - Displaced fracture of fifth metatarsal bone, right foot, initial encounter for closed fracture Code(s): S92.351A - Displaced fracture of fifth metatarsal bone, right foot, initial encounter for closed fracture Status: Acute (3) Systolic murmur: Code(s): R01.1 - Cardiac murmur, unspecified Status: Acute (4) Hypothyroidism, unspecified: Code(s): E03.9 - Hypothyroidism, unspecified Status: Acute (5) Other hyperlipidemia: Code(s): E78.49 - Other hyperlipidemia Status: Acute (6) HTN (hypertension): Code(s): I10 - Essential (primary) hypertension Status: Acute (7) Renal insufficiency: Code(s): N28.9 - Disorder of kidney and ureter, unspecified Status: Acute (8) Hyperglycemia: Code(s): R73.9 - Hyperglycemia, unspecified Status: Acute DS: Summary Hospital Course Reason for hospitalization: 87yo female with hypothyroidism, hyperlipidemia and hypertension here for fall. Please see H&P for details. Hospital Course: In the ED, patient was hemodynamically stable.? White count was normal.? Hemoglobin slightly low at 11.4.? Platelet count was mildly elevated 472K. BUN was 32 and creatinine was 1.5.? Glucose 122. LFTs normal.? Urinalysis was clear.? 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 Cervical spine CT showed moderate cervical spondylosis without acute findings.? There was concern the patient may have had TIA so CTA was ordered.? CTA of the head and neck again shows areas of prior infarct without acute intracranial abnormalities.? She had 0% stenosis in the bilateral proximal internal carotid arteries.? Chest x-ray was clear.? Foot x-ray shows acute oblique fracture of the 5th metatarsal neck.? She was placed in a soft cast.? She was given aspirin.? She was admitted to medical service on telemetry. Suspect patient probably had idiopathic right metatarsal hairline fracture earlier in the day. Patient probably completed the fracture that resulted in her fall that evening. TIA seems less likely although she has hx of CVA by imaging. MRI of the brain showing old infarcts in the left parietal lobe and right cerebellum. Echo showing EF 70%, grade I diastolic dysfunction and no evidence of right to left shunt. No signifincat valvular disease. Ortho consulted and appreciated their input. PT and OT ordered. Renal ultrasound normal. Renal function improved. We continued her Norvasc but held her Valsartan-HCTZ. Blood pressure remained stable. She may not need this medication given her recent weight loss. A1c 5.6. LDL 83. Lipitor advanced. ASA added for old CVA. B12 267 and she received adose of IM B12 and started on oral. TSH was normal. She had clinical improvement. She was fitted with boot. She was able to be discharged home on 02/22/23 Status at Discharge Cognitive/behavioral status at discharge: stable Time Spent with Patient Time attestation: Total time spent providing and/or coordinating discharge services: 38 minutes Time spent: Greater than 30 minutes Exam Narrative: AF 98.7 115/66 82 18 94% ra Gen - NARD Chest - CTA bilaterally, nml RR CV - RRR. S1-S2. 2/6 systolic murmur loudest Rt USB. Tele showing no significant dysrhythmias Abd - Soft. NT/ND. +BS Ext - no pedal edema. Psych - normal mood and affect. Skin - warm and dry. Discharge Plan Discharge Attending physician on discharge: Kash Abad Consulting providers: Bong Mcdonough
== END 2023-02-22 17:45 | disposition home or self-care (01) ==
LOC: ANHED 22:09 → ANH2MED 23:11
PROVIDERS: Admitting Provider Internal Medicine; Emergency Provider Emergency Medicine; PCP Emergency Medicine; Visit Provider Internal Medicine
DX: S92.351A Displaced fracture of fifth metatarsal bone, right foot, initial encounter for closed fracture (principal); S09.90XA Unspecified injury of head, initial encounter; W01.0XXA Fall on same level from slipping, tripping and stumbling without subsequent striking against object, initial encounter; R01.1 Cardiac murmur, unspecified; M47.812 Spondylosis without myelopathy or radiculopathy, cervical region; I11.9 Hypertensive heart disease without heart failure; I45.2 Bifascicular block; E03.9 Hypothyroidism, unspecified; E78.49 Other hyperlipidemia; N28.9 Disorder of kidney and ureter, unspecified; R73.9 Hyperglycemia, unspecified; M79.671 Pain in right foot; E55.9 Vitamin D deficiency, unspecified; Z82.49 Family history of ischemic heart disease and other diseases of the circulatory system; Z86.73 Personal history of transient ischemic attack (TIA), and cerebral infarction without residual deficits; Z79.899 Other long term (current) drug therapy
CPT/HCPCS: 36415; 70450; 70496; 70498; 70551; 71045; 72125; 73630; 76775; 80048; 80053; 80061; 81001; 82607; 82746; 83036; 83735; 84443; 84484; 85025; 85610; 85730; 93005; 96374; 96375; 97161; 97165; 97530; 97535; 99285; A9270; C8929; G0378; J3420; Q9957; Q9967

== ENCOUNTER 2023-03-17 09:27 | Outpatient (CLI) | payer MEDICARE, SELFPAY ==
[2023-03-17 10:59] LABS: Alanine Aminotransferase 18 U/L (6-35); Albumin Level 4.5 g/dL (3.5-5.1); Alkaline Phosphatase 57 U/L (38-126); Anion Gap 8 mmol/L (8-16); Aspartate Amino Transferase 26 U/L (14-36); Bilirubin,Total 0.6 mg/dL (0.2-1.3); Blood Urea Nitrogen 28 mg/dL (7-17); Calcium 9.9 mg/dL (8.4-10.2); Carbon Dioxide 29 mmol/L (22-30); Chloride 102 mmol/L (98-107); Cholesterol 163 mg/dL (0-200); Estimated Glomerular Filt Rate 53; Glucose 103 mg/dL (65-110); HDL Direct 59 mg/dL; Potassium 4.3 mmol/L (3.4-5.0); Sodium 139 mmol/L (137-145); Triglycerides 121 mg/dL (<150)
[2023-03-17 11:14] LABS: LDL Cholesterol Direct 77 mg/dL
[2023-03-17 12:09] LABS: Folic Acid > 20.0 ng/mL (2.76->20)
== END 2023-03-17 09:28 | disposition home or self-care (01) ==
LOC: ANHLAB 09:28
PROVIDERS: PCP Emergency Medicine; Visit Provider Emergency Medicine
DX: E03.9 Hypothyroidism, unspecified (principal); E53.8 Deficiency of other specified B group vitamins; I10 Essential (primary) hypertension
CPT/HCPCS: 36415; 80053; 80061; 82607; 82746

== ENCOUNTER 2023-06-29 10:25 | Outpatient (CLI) | payer MEDICARE, SELFPAY ==
[2023-06-29 11:50] LABS: Alanine Aminotransferase 20 U/L (6-35); Albumin Level 4.7 g/dL (3.5-5.1); Alkaline Phosphatase 52 U/L (38-126); Anion Gap 8 mmol/L (4-12); Aspartate Amino Transferase 28 U/L (14-36); Bilirubin,Total 0.7 mg/dL (0.2-1.3); Blood Urea Nitrogen 27 mg/dL (7-17); Calcium 9.6 mg/dL (8.4-10.2); Carbon Dioxide 24 mmol/L (22-30); Chloride 106 mmol/L (98-107); Cholesterol 158 mg/dL (0-200); Estimated Glomerular Filt Rate 47; Glucose 99 mg/dL (65-110); HDL Direct 54 mg/dL; Potassium 4.1 mmol/L (3.4-5.0); Sodium 138 mmol/L (137-145); Triglycerides 139 mg/dL (<150)
[2023-06-29 12:01] LABS: LDL Cholesterol Direct 71 mg/dL
[2023-06-29 12:24] LABS: Vitamin D 25 Hydroxy 48.3 ng/mL
[2023-06-29 13:01] LABS: Folic Acid > 20.0 ng/mL (2.76->20)
== END 2023-06-29 10:26 | disposition home or self-care (01) ==
PROVIDERS: PCP Emergency Medicine; Visit Provider Emergency Medicine
DX: E55.9 Vitamin D deficiency, unspecified (principal); I10 Essential (primary) hypertension; E03.9 Hypothyroidism, unspecified; E78.5 Hyperlipidemia, unspecified; E53.8 Deficiency of other specified B group vitamins
CPT/HCPCS: 36415; 80053; 80061; 82306; 82607; 82746; 84443

== ENCOUNTER 2023-10-19 12:01 | Outpatient (CLI) | payer MEDICARE, SELFPAY ==
--- NOTE | ~2023-10-19 | DEXA_ITS ---
Bone Density Report Name: TANA MCDOWELL Age: 88 Sex: Female Ethnicity: White Date of : 1935 Indication: postmenopausal; screening for osteoporosis; parental hip fracture; height loss; Referring Provider: CONRAD GAMBLE Study: Bone densitometry was performed. Exam Date: October 19, 2023 Accession number: [id number] Bone Density: Region BMD T-score Z-score Classification AP Spine(L1-L4) 1.141 0.9 3.7 Normal Femoral Neck (Left) 0.784 -0.6 1.9 Normal Total Hip (Left) 0.845 -0.8 1.5 Normal Femoral Neck (Right) 0.708 -1.3 1.3 Osteopenia Total Hip (Right) 0.830 -0.9 1.4 Normal Total Hip Mean 0.838 -0.9 1.5 Normal World Health Organization criteria for BMD impression classify patients as: Normal (T-score at or above -1.0), Osteopenia (T-score between -1.0 and -2.5), or Osteoporosis (T-score at or below -2.5). 10-year Fracture Risk(1): Major Osteoporotic Fracture 20% Hip Fracture 12% Reported Risk Factors: [place] (), Neck BMD=0.708, BMI=23.6, parental fracture (1) FRAX(R) Version 3.08. Fracture probability calculated for an untreated patient. Fracture probability may be lower if the patient has received treatment. Previous Exams: Region Exam Age BMD T-score BMD Change BMD Change Date g/cm2 vs Baseline vs Previous AP Spine (L1-L4) 10/19/2023 88 1.141 0.9 0.131 (12.9%)* 0.039 (3.6%)* 09/16/2021 86 1.102 0.5 0.091 (9.0%)* 0.091 (9.0%)* 06/21/2017 81 1.011 -0.3 Total Hip(Left) 10/19/2023 88 0.845 -0.8 -0.118 (-12.2% -0.009 (-1.1%) 09/16/2021 86 0.854 -0.7 -0.108 (-11.3% -0.108 (-11.3% 06/21/2017 81 0.963 0.2 Total Hip(Right) 10/19/2023 88 0.830 -0.9 -0.119 (-12.5% -0.040 (-4.6%) 09/16/2021 86 0.870 -0.6 -0.079 (-8.3%) -0.079 (-8.3%) 06/21/2017 81 0.949 0.1 *Denotes significance at 95% confidence level, LSC for AP Spine = 0.022 g/cm2, LSC for Total Hip = 0.027 g/cm2 Clinical Information Provided by Patient: Parent has had a hip fracture Has used the following medications: Vitamin D, Calcium Patient maximum height was 64 Menopause Age: 53 Does not regularly consume dairy products Drinks caffeinated beverages Onset of menses at age 15 Number of children 0 Impression: The patient has low bone mass, based on the Right Femoral Neck T-score. The patient has an estimated ten-year risk of hip fracture of 12% and an estimated ten-year risk of major f
== END 2023-10-19 12:02 | disposition home or self-care (01) ==
LOC: ANHIMG 12:03
PROVIDERS: PCP Emergency Medicine; Visit Provider Emergency Medicine
DX: Z78.0 Asymptomatic menopausal state (principal); E55.9 Vitamin D deficiency, unspecified; M85.851 Other specified disorders of bone density and structure, right thigh
CPT/HCPCS: 77080

== ENCOUNTER 2024-01-02 09:00 | Outpatient (CLI) | payer MEDICARE, SELFPAY ==
[2024-01-02 12:13] LABS: Alanine Aminotransferase 19 U/L (6-35); Albumin Level 4.7 g/dL (3.5-5.1); Alkaline Phosphatase 46 U/L (38-126); Anion Gap 9 mmol/L (4-12); Aspartate Amino Transferase 29 U/L (14-36); Bilirubin,Total 0.7 mg/dL (0.2-1.3); Blood Urea Nitrogen 31 mg/dL (7-17); Carbon Dioxide 28 mmol/L (22-30); Chloride 100 mmol/L (98-107); Cholesterol 162 mg/dL (0-200); Estimated Glomerular Filt Rate 47; Glucose 97 mg/dL (65-110); HDL Direct 55 mg/dL; Potassium 4.1 mmol/L (3.4-5.0); Sodium 137 mmol/L (137-145); Triglycerides 132 mg/dL (<150)
[2024-01-02 12:25] LABS: LDL Cholesterol Direct 67 mg/dL
[2024-01-02 13:12] LABS: Vitamin D 25 Hydroxy 44.7 ng/mL
== END 2024-01-02 09:01 | disposition home or self-care (01) ==
LOC: ANHLAB 09:01
PROVIDERS: PCP Emergency Medicine; Visit Provider Emergency Medicine
DX: E78.5 Hyperlipidemia, unspecified (principal); E55.9 Vitamin D deficiency, unspecified; E03.9 Hypothyroidism, unspecified
CPT/HCPCS: 36415; 80053; 80061; 82306; 84443

== ENCOUNTER 2024-07-20 08:21 | Outpatient (CLI) | payer MEDICARE, SELFPAY ==
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
--- OUTSIDE RECORDS SUMMARY | 2024-07-20 08:27 | XMS_ITS | Referral Summary ---
Author Organization [facility] Address [address] [place] [address] Care Team Providers Care Information Technology Coordinator Name Role Phone Contreras Bacon MD Primary Care Provide r Encounters Date Type Department Care Team Description 06/30/2024 11:45 AM CDT Office Visit [facility] at [address] [id number] Geeta Urrutia PA Dizziness (Primary Dx) from Last 3 Months Allergies Active Allergy Reactions Criticality Noted Date [...] 06/30/2013 Overview (05/21/2016): Anemia of chronic disease Immunizations Immunization Administration Dates Next Due Influenza, Quadrivalent, Hig h Dose, Preservative Free, Intrr 11/18/2021 Influenza, Split 12/08/2009 Influenza, Trivalent, IM (MDV) 2,11/23/2010,11/14/2008,12/12,12/07/2006 Pneumococcal Polysaccharide PPV23 01/18/2008 ZOSTER LIVE 05/25/2010 Social History Tobacco Use Types Packs/Day Years Used Date Smoking Tobacco: Never Smokeless Tobacco: Never Tobacco Cessation:Counseling Given: Not Answered Alcohol Use Standard Drinks/Week Comments No 0 (1 standard drink = 0.6 oz pur e alcohol) Comments Unknown Sex and Gender Information Value Date Recorded Sex Assigned at Not on file Legal Sex Female 11:40 PM [employer] Gender Identity Not on file Sexual Orientation Not on file Last Filed Vital Signs Vital Sign Reading [...] 06/30/2024 11:37 AM CDT Plan of Treatment Not on file Insurance [facility] MEDICARE MEDICARE [facility] Care Teams Information Technology Coordinator Relationship Specialty Start Date End Date Contreras Bacon MD [address] [place] [address] PCP - General Emergency Medicine 08/22/21
[2024-07-20 08:54] LABS: Hemoglobin 11.4 g/dL (12.0-15.0); Mean Corpuscular HGB Conc 32.6 g/dl (32-36); Mean Corpuscular Hemoglobin 30.1 pg (26-34); Mean Corpuscular Volume 92.3 fl (80-100); Mean Platelet Volume 9.1 fl (7.4-10.4); Platelet Count Result 452 k/mm3 (150-375); Red Blood Count 3.79 M/mm3 (4.2-5.4); Red Cell Distribution Width 12.9 % (11.5-14.5); White Blood Count 7.6 K/mm3 (4.5-10.0)
[2024-07-20 09:06] LABS: Alanine Aminotransferase 21 U/L (6-35); Albumin Level 4.6 g/dL (3.5-5.1); Alkaline Phosphatase 48 U/L (38-126); Anion Gap 7 mmol/L (4-12); Aspartate Amino Transferase 29 U/L (14-36); Bilirubin,Total 0.7 mg/dL (0.2-1.3); Blood Urea Nitrogen 27 mg/dL (7-17); Calcium 9.9 mg/dL (8.4-10.2); Carbon Dioxide 25 mmol/L (22-30); Chloride 105 mmol/L (98-107); Cholesterol 170 mg/dL (0-200); Estimated Glomerular Filt Rate 43; Glucose 105 mg/dL (65-110); HDL Direct 55 mg/dL; Potassium 4.3 mmol/L (3.4-5.0); Sodium 137 mmol/L (137-145); Total Protein 7.5 g/dL (6.3-8.2); Triglycerides 140 mg/dL (<150)
[2024-07-20 09:18] LABS: LDL Cholesterol Direct 68 mg/dL
[2024-07-20 09:33] LABS: Vitamin D 25 Hydroxy 37.5 ng/mL
== END 2024-07-20 08:22 | disposition home or self-care (01) ==
PROVIDERS: PCP Emergency Medicine; Visit Provider Emergency Medicine
DX: E78.5 Hyperlipidemia, unspecified (principal); E03.9 Hypothyroidism, unspecified; E55.9 Vitamin D deficiency, unspecified; R53.83 Other fatigue
CPT/HCPCS: 36415; 80053; 80061; 82306; 84443; 85027

== ENCOUNTER 2025-01-19 08:48 | Outpatient (CLI) | payer MEDICARE, SELFPAY ==
[2025-01-19 10:34] LABS: Alanine Aminotransferase 20 U/L (6-35); Albumin Level 4.7 g/dL (3.5-5.1); Alkaline Phosphatase 52 U/L (38-126); Anion Gap 6 mmol/L (4-12); Aspartate Amino Transferase 35 U/L (14-36); Bilirubin,Total 0.8 mg/dL (0.2-1.3); Blood Urea Nitrogen 24 mg/dL (7-17); Calcium 9.6 mg/dL (8.4-10.2); Carbon Dioxide 27 mmol/L (22-30); Chloride 103 mmol/L (98-107); Cholesterol 159 mg/dL (0-200); Estimated Glomerular Filt Rate 45; Glucose 99 mg/dL (65-110); HDL Direct 55 mg/dL; Potassium 4.0 mmol/L (3.4-5.0); Sodium 136 mmol/L (137-145); Total Protein 7.7 g/dL (6.3-8.2); Triglycerides 107 mg/dL (<150)
[2025-01-19 11:10] LABS: Thyroid Stimulating Hormone 3.190 uIU/mL (0.465-4.680)
[2025-01-19 11:32] LABS: Vitamin B12 > 1000.0 pg/mL (239-931)
[2025-01-21 15:08] LABS: Folate, Hemolysate 480.0 ng/mL (Not Estab.)
== END 2025-01-19 08:49 | disposition home or self-care (01) ==
LOC: ANHLAB 08:50
PROVIDERS: PCP Emergency Medicine; Visit Provider Emergency Medicine
DX: D52.0 Dietary folate deficiency anemia (principal); E78.5 Hyperlipidemia, unspecified; R53.83 Other fatigue; E55.9 Vitamin D deficiency, unspecified
CPT/HCPCS: 36415; 80053; 80061; 82306; 82607; 82747; 84443